=== PATIENT | female | born 1955 | race Caucasian/White ===

== ENCOUNTER → 2018-05-26 08:00 | Outpatient (CLI) | payer OTHER, SELFPAY | PROVIDERS: PCP Family Medicine; Visit Provider Internal Medicine Cardiovascular Disease | DX: I48.1 Persistent atrial fibrillation (principal) | CPT/HCPCS: 93005; 93010 ==

== ENCOUNTER 2019-09-03 09:12 | Outpatient (REF) | payer OTHER, SELFPAY ==
[2019-09-03 13:37] LABS: HCT 40.4 % (36.0-46.0); HGB 13.5 g/dL (12.0-15.5); Mean Corp. HGB Concentration 33.4 g/dL (32.0-36.0); Mean Corpuscular Hemoglobin 31.1 pg (27.0-33.0); Mean Corpuscular Volume 93.1 fL (80-95); Mean Platelet Volume 11.2 fL (8.0-11.0); Platelet Count 182 x1000/uL (130-400); RBC 4.34 m/cumm (4.00-5.20); RBC Distribution Width 12.8 % (11.7-14.6); White Blood Cell Count 5.77 k/cumm (4.4-10.8)
[2019-09-03 13:56] LABS: ALT 34 U/L (14-59); AST 20 U/L (15-37); Albumin 3.5 g/dL (3.4-5.0); Alkaline Phosphatase 74 U/L (46-116); Anion Gap 6.8 mmol/L (3-11); BUN 11 mg/dL (7-18); Bilirubin, Total 0.5 mg/dL (0.2-1.0); CO2 29.2 mmol/L (21.0-32.0); CREATININE 0.88 mg/dL (0.55-1.02); Calcium 8.6 mg/dL (8.5-10.1); Calculated LDL 118 mg/dL; Chloride 106 mmol/L (98-107); Cholesterol 192 mg/dL (<200); Glucose 85 mg/dL (74-106); HDL Cholesterol 50 mg/dL (40-60); Potassium 3.9 mmol/L (3.5-5.1); Sodium 142 mmol/L (136-145); Total Protein 6.5 g/dL (6.4-8.2); Triglyceride 123 mg/dL (<150)
== END 2019-09-03 09:32 ==
LOC: NCHCN 09:12
PROVIDERS: PCP Family Medicine; Visit Provider Family Medicine
DX: Z00.00 Encounter for general adult medical examination without abnormal findings (principal); I10 Essential (primary) hypertension; R00.2 Palpitations; K57.90 Diverticulosis of intestine, part unspecified, without perforation or abscess without bleeding
CPT/HCPCS: 80053; 80061; 85027

== ENCOUNTER 2020-09-27 00:36 | Outpatient (CLI) | payer MEDICARE, OTHER, SELFPAY ==
--- NOTE | 2020-09-27 10:15 | DI.MAMMO_ITS ---
EXAM: MG MAMMO SCREENING CLINICAL HISTORY: SCREENING,Z12.31 TECHNIQUE: Bilateral full field digital CC and MLO mammographic images were obtained with 3D tomosyn thesis and utilizing computer aided detection (CAD). COMPARISON: Available for comparison. FINDINGS: Masses/Architectural Distortion: None seen. Microcalcifications: No suspicious pleomorphic-type are seen. Skin Thickening/Nipple Retraction: None. IMPRESSION: 1. No significant interval change with no specific features of malignancy noted. 2. Unless there is more urgent need, screening mammography is recommended, as per [employer] guidelines. BI-RADS Category 1 - Negative Breast Density - Category C - Heterogeneously dense Breast density category C or D implies that the patient has dense breast tissue. Dense breast tissue is very common and is not abnormal but dense breast tissue can make it harder to find cancer on a ma mmogram. Also, dense breast tissue may increase their breast cancer risk. This information about the result of the mammogram report was provided to the patient to raise their awareness. Use this report when you speak with the patient about their risks for breast cancer, which includes their family hist ory. At that time, you may recommend for more screening tests (Ultrasound or MRI) as they might be us eful based on their risk. A negative radiographic report should not delay biopsy if a dominant or clinically suspicious mass is present. Up to ten percent of cancers are not identified on mammography. A negative report may reinforce clinical impression. Adenosis and dense breasts may obscure an underlying neoplasm. False positive reports average 6 to 10%. Patient will receive a letter notifying them of these results.
== END 2020-09-27 00:56 ==
PROVIDERS: PCP Family Medicine; Visit Provider Family Medicine
DX: Z12.31 Encounter for screening mammogram for malignant neoplasm of breast (principal)
CPT/HCPCS: 77063; 77067

== ENCOUNTER 2020-09-29 17:57 | Outpatient (REF) | payer MEDICARE, OTHER, SELFPAY ==
[2020-10-03 17:21] LABS: COVID-19 RT-PCR Result NEGATIVE (Negative)
== END 2020-09-29 18:17 ==
LOC: NCHCN 17:57
PROVIDERS: PCP Family Medicine; Visit Provider Family Medicine
DX: Z11.59 Encounter for screening for other viral diseases (principal)
CPT/HCPCS: U0003

== ENCOUNTER → 2020-11-04 14:00 | Outpatient (BNVA) | payer MEDICARE, OTHER, SELFPAY | PROVIDERS: PCP Family Medicine; Referring Provider Family Medicine; Visit Provider Physical Therapy Assistant | DX: Z12.11 Encounter for screening for malignant neoplasm of colon (principal) ==

== ENCOUNTER 2020-11-22 02:00 | Outpatient (CLI) | payer MEDICARE, OTHER, SELFPAY ==
[2020-11-23 14:04] LABS: COVID-19 RT-PCR UVMMC Result Negative (Negative)
== END 2020-11-22 02:01 | disposition home or self-care (01) ==
LOC: LBO 02:01
PROVIDERS: Surgery; PCP Family Medicine; Visit Provider Surgery
DX: Z20.822 Contact with and (suspected) exposure to COVID-19 (principal); Z01.818 Encounter for other preprocedural examination
CPT/HCPCS: U0003; U0005

== ENCOUNTER → 2021-02-03 08:54 | Outpatient (BNVA) | payer MEDICARE, OTHER, SELFPAY | PROVIDERS: PCP Family Medicine; Referring Provider Family Medicine; Visit Provider Physical Therapy Assistant ==

== ENCOUNTER 2021-02-03 21:57 | Outpatient (REF) | payer MEDICARE, OTHER, SELFPAY ==
[2021-02-03 20:48] LABS: HCT 38.2 % (36.0-46.0); HGB 12.9 g/dL (11.2-15.7); MCH 31.1 pg (27.0-33.0); MCHC 33.8 % (32.0-36.0); MPV 11.1 fL (8.0-11.0); Platelet Count 175 10^3/uL (130-400); RBC 4.15 10^6/uL (3.93-5.22); RDW 12.5 % (11.7-14.6); RDW-SD 42.5 fL; WBC 6.35 10^3/uL (4.4-10.8)
[2021-02-03 21:00] LABS: Anion Gap 5.4 mmol/L (3-11); BUN 12 mg/dL (7-18); CO2 29.6 mmol/L (21.0-32.0); CREATININE 0.9 mg/dL (0.55-1.02); Chloride 106 mmol/L (98-107); Glucose 82 mg/dL (74-106); Potassium 3.9 mmol/L (3.5-5.1); Sodium 141 mmol/L (136-145)
== END 2021-02-03 21:58 | disposition home or self-care (01) ==
LOC: NCHCN 21:57
PROVIDERS: PCP Family Medicine; Visit Provider Family Medicine
DX: I10 Essential (primary) hypertension (principal)
CPT/HCPCS: 80048; 85027

== ENCOUNTER → 2021-04-07 11:24 | Outpatient (BNVA) | payer MEDICARE, OTHER, SELFPAY | PROVIDERS: PCP Family Medicine; Referring Provider Family Medicine; Visit Provider Physical Therapy Assistant | DX: Z12.11 Encounter for screening for malignant neoplasm of colon (principal); I10 Essential (primary) hypertension ==

== ENCOUNTER 2021-04-19 06:19 | Day surgery (SDC) | payer MEDICARE, OTHER, SELFPAY ==
--- NOTE | 2021-04-19 06:27 | W.COLOREPORT ---
Date of service: 04/19/21 Time of Service: 07:58 Colonoscopy Report Date of procedure: 04/19/21 Pre-op diagnosis general: Colon Cancer Screening Post-op diagnosis procedure note: same (diverticulosis) Procedure: Colonoscopy Surgeon: Lucía Olivas Anesthesia Type: General:No Airway (ASA 2/ Salvador Blood, SHIRLEY) Estimated blood loss (mL): 0 Pathology: none sent Complications: None Disposition: same day Indications: The patient is here for Colonoscopy pre-op. Her last screening was 13+ years ago, which she reports was unremarkable. She has no family history of colon cancer. She has not had any bowel habit changes. -Discussed colonoscopy bowel prep as well as the procedure. Discussed possible complications of the procedure to include bleeding, pain, perforation, missed small lesion/polyp, sore throat, aspiration and adverse reaction to the medications. Questions were answered to patient?s satisfaction. No guarantees were implied or given. Prep: Miralax/Dulcolax Procedure Start Time: 07:36 Procedure End Time: 07:51 Retraction Time: 10 minutes Findings: Left sided diverticulosis Procedure Description: After informed consent was obtained the patient was taken to the procedure room and placed in a left decubitous position. Monitors were applied and a time out was done. The patients name, date of , procedure, allergies to medications and metal in their body was reviewed. The patient was then sedated. Once sedated and comfortable a rectal exam was done. External exam was normal. Internal exam revealed a normal sphincter tone and no palpable masses. The scope was then introduced and retro-flexed. No internal hemorrhoids, polyps or masses were identified on retro-flexion. The scope was then advanced to the cecum without difficulty. The ileocecal vlave and appendiceal orifice were identified. The prep was adequate. The scope was then slowly retracted over 10 minutes back into the rectum. There were no polyps. There was descending and sigmoid diverticulosis noted. The scope was removed and the patient was woken up and taken back to Same day surgery in stable condition. The patient tolerated the procedure well and there were no immediate complications. Follow up: The patient should follow up in 10 years unless they develop changes in bowel habits or other new gastrointestinal complaints.
--- NOTE | 2021-04-19 06:28 | PDOC.DSDIS_ITS ---
Discharge Plan Disposition Patient Disposition: HOME Condition: Good Discharge Details Reason For Visit: Colonoscopy Attending Provider: Lucía Olivas Primary Care Provider: Katherine Avendano Home Meds and New Rx's Prescriptions: Continued lisinopril-hydrochlorothiazide 20-12.5 mg tablet 1 tab PO DAILY RF: 0 magnesium gluconate 27 mg magnesium (500 mg) tablet 27 mg PO DAILY RF: 0 Xarelto 20 mg tablet 20 mg PO DAILY RF: 0 calcium polycarbophil [Fiber (calcium polycarbophil)] 625 mg tablet 2,500 mg PO BID PRNRF: 0 metoprolol tartrate 25 mg tablet 37.5 mg PO BID RF: 0 Discontinued bisacodyl [Dulcolax (bisacodyl)] 5 mg tablet,delayed release (DR/EC) 5 mg PO ONCE Qty: 4 RF: 0 polyethylene glycol 3350 17 gram/dose powder 238 g PO ONCE Qty: 238 RF: 0 Discharge Instructions Instructions: Diverticulosis (DC) Additional Instructions: Findings: Diverticulosis Follow up: 10 years Please call if you develop: fevers >101.5 Nausea or Vomiting Abdominal pain that is not transient Rectal bleeding that is more then a tbsp A hard abdomen and inability to pass gas DAY SURGERY UNIT POST ENDOSCOPY INSTRUCTIONS Instructions for everyone who is given Anesthesia: For your safety, please do the following for the next 24 Hours: a. Do not drive or operate dangerous equipment b. Do not drink alcohol beverages or use any recreational drugs for the first 24 hours or while taking pain medications. The medications in your body may have a reaction that can be dangerous. c. Do not make any important decisions or sign any important papers 1. Generally there are no restrictions on your activity after a day or so has g one by, but you may feel a bit fatigued for a few days. 2. After you arrive home you may have a light meal and return to a normal diet as you can tolerate it without feeling sick to your stomach. 3. After surgery, you may feel pain or discomfort. This should be only transient, but if it persists please contact your doctor. 4. If there are any questions regarding the findings of your procedure, please feel free to contact your doctor. 6. If you are unable to contact your doctor with a problem, contact the hospital at [phone]. 7. Continue all your regular medications unless directed otherwise. I understand the above instructions and have no questions. Signature of Patient or Responsible Adult Escort Date/Time Name of Responsible Adult Escort Signature of Nurse Date/Time Activity:: Activity as Tolerated Diet:: High Fiber Diet Discharge Orders Discharge Orders: Discharge Order (Routine); Ordered 04/19/21 Ordered By: Lucía Olivas
[2021-04-19 06:40] VITALS: BP 112/70; PULSE 77; RESP 20; TEMP 36.2; O2SAT 100
--- NOTE | 2021-04-19 06:58 | W.ANESPRE ---
General Info Date of Service Date Performed: 04/19/21 Height: 5 ft 6.93 in Weight: 68.4 kg Body Mass Index (BMI): 23.6 Surgical Procedure: Operation Date: 04/19/21 07:35 Proposed Procedures Side Surgeon p Colonoscopy Lucía Olivas MD Actual Procedures Side Surgeon p Colonoscopy Not Applicable Lucía Olivas MD Pre-Op Diagnosis Post-Op Diagnosis Screening Colonoscopy Meds Allergies and Home Medications Allergies Allergy/AdvReac Type Severity Reaction Status Date / Time No Known Allergies Allergy Verified 04/19/21 06:26 Home Medication Medication Instructions Recorded calcium polycarbophil 625 mg tablet 2,500 mg PO BID PRN tab 09/22/19 magnesium gluconate 27 mg 27 mg PO DAILY tab 09/22/19 magnesium (500 mg) tablet rivaroxaban 20 mg tablet 20 mg PO DAILY 09/22/19 metoprolol tartrate 25 mg tablet 37.5 mg PO BID tab 11/04/20 bisacodyl 5 mg tablet,delayed 5 mg PO ONCE #4 tab 11/07/20 release polyethylene glycol 3350 17 238 g PO ONCE #238 g 11/07/20 gram/dose oral powder lisinopril 20 1 tab PO DAILY 04/07/21 mg-hydrochlorothiazide 12.5 mg tablet Current Visit Medications: Current Medications Generic Name Dose Route Start Last Admin Trade Name Freq PRN Reason Stop Dose Admin Hyoscyamine Sulfate 0.125 mg 04/19/21 06:29 Hyoscyamine 0.125 Mg Sl/Oral/Chew SL DIRECTED PRN Ringer's Solution 1,000 mls @ 80 mls/hr 04/19/21 06:00 IV 05/18/21 23:59 [facility]ION [facility] IV Miscellaneous Supplies 1 each 04/19/21 06:00 Iv Access IV 05/18/21 23:59 DIRECTED SUSAN Ondansetron HCl 4 mg 04/19/21 06:29 Ondansetron 4 Mg/2 Ml Vial IVP Q4H PRN PRN Nausea / Vomiting Sodium Chloride 0 ml 04/19/21 06:00 Normal Saline Flush 10 Ml Syr IV 05/18/21 23:59 PRN PRN Sodium Chloride 0 ml 04/19/21 06:00 Normal Saline 10 Ml Vial IJ 05/18/21 23:59 DIRECTED PRN Sterile Water 0 ml 04/19/21 06:00 Water,Injection,Sterile 10 Ml Vial IJ 05/18/21 23:59 DIRECTED PRN [facility] Active Problems Active Problems: Problem Status Onset Code Moderate tricuspid regurgitation I07.1 DAMION (obstructive sleep apnea) G47.33 Neurodermatitis L28.0 Diverticulosis K57.90 Hypertension I10 A-fib I48.91 Medical History Medical History A-fib Abdominal tightness tightness on left side of abd, Diverticulosis Diverticulosis History of cardioversion x3 Hypertension Moderate tricuspid regurgitation Neurodermatitis DAMION (obstructive sleep apnea) Surgical History Surgical History History of colonoscopy (~05/19/08) History of thyroidectomy per pt just half her thyroid. Tobacco Smoking/Tobacco Use Status: Never Alcohol Alcohol Intake: current Alcohol intake frequency: a few times a month Alcohol type: wine Substance Use Substance use: Never Substance use type: does not use Vital Signs and Lab Results Vital Signs Most Recent Vital Signs in EMR: Most Recent Vital Signs Temp Pulse Resp BP Pulse Ox 36.2 C L 77 20 112/70 100 04/19/21 06:40 04/19/21 06:40 04/19/21 06:40 04/19/21 06:40 04/19/21 06:40 Lab Results Blood Type / Crossmatch: No Data to Display Complete Blood Count: No Data to Display Complete Metabolic Panel: No Data to Display Liver Function Panel: No Data to Display Coagulation Panel: No Data to Display Cardiac Panel: No Data to Display Arterial Blood Gas: No Data to Display Venous Blood Gas: No Data to Display Pancreas Panel: No Data to Display Thyroid Panel: No Data to Display Infectious Disease: No Data to Display Blood Cultures: No Data to Display Toxicology Panel: No Data to Display Anesthesia Assessment and Plan Anesthesia History Personal History: No History of Anesthesia Complications Family History: No Family History of Anesthesia Complications Exercise Tolerance Exercise Tolerance: Metabolic Equivalents>4 Pertinent Negatives Pertinent Negatives: No Symptoms of GERD, No Major Cardiovascular Symptoms or Complaints and No History of CVA/TIA Cardiac & Pulmonary Exam Cardiac Exam: Normal S1/S2 Heart Sounds Pulmonary Exam: Clear Bilateral Breath Sounds Airway Exam Known Difficult Airway: No Mallampati Class: 2 Mouth Opening: Normal (> 3cm) Thyromental Distance: Greater than 3 cm Neck Range of Motion: Full ROM Neck Circumference: Normal Teeth Condition: Normal Dentition Airway Comments: 4 crowns, 1 each top and bottom right and left back ASA Classification ASA Score: ASA 2 Emergency Case?: No NPO Status NPO Status: NPO Clears >2 hours, Solids >8 hours Anesthesia Plan Resuscitation Status: Full Code Anesthesia Technique: General Anesthesia Airway Planned: Natural Airway Monitors Used: Standard Monitors
[2021-04-19] MEDS: Lactated Ringers 1,000 ML 80 ML IV (07:03)
[2021-04-19 07:14] VITALS: BMI 23.6
[2021-04-19 08:07] VITALS: BP 103/64; PULSE 74; RESP 18; TEMP 36.1; O2SAT 97
--- NOTE | 2021-04-19 08:09 | W.ANESPOSTOP ---
Postoperative Evaluation Date, Time and Location Date Performed: 04/19/21 Time Performed: 08:10 Patient Location: Day Surgery Unit Vital Signs Most Recent Imported Vital Signs: Most Recent Vital Signs Temp Pulse Resp BP Pulse Ox 36.2 C L 77 20 112/70 100 04/19/21 06:40 04/19/21 06:40 04/19/21 06:40 04/19/21 06:40 04/19/21 06:40 Most Recent Manually Entered Vital Signs: Adult Blood Pressure: 103/64 Heart Rate: 63 Respirations: 10 Oxygen Saturation (%): 96 Temperature (C): 36.4 C Pain Score (0-10 Scale): 0 Pain Score Most Recent Pain Score: Most Recent Pain Score Pain Level 0 04/19/21 06:40 Assessment Mental Status: Awake (Alert & Oriented to Patient Baseline) Airway and Respiratory Function: Patent airway with normal (patient baseline) respiratory exam Cardiovascular Function: Hemodynamically Stable Hydration Status: Adequately Hydrated Nausea & Vomiting: No Nausea or Vomiting Pain: Pt. Denies Any Pain Peripheral Nerve Block: Patient did not receive a nerve block
[2021-04-19 08:11] VITALS: BP 103/64; PULSE 63; RESP 10; TEMPC 36.4; O2SAT 96
[2021-04-19 08:37] VITALS: BP 104/70; PULSE 64; RESP 18; TEMP 36.2; O2SAT 100
== END 2021-04-19 08:56 | disposition home or self-care (01) ==
PROVIDERS: PCP Family Medicine; Visit Provider Surgery
PROC: 0DJD8ZZ Inspection of Lower Intestinal Tract, Via Natural or Artificial Opening Endoscopic (ICD-10-PCS; CPT 45378; principal; 2021-04-19 07:30)
DX: Z12.11 Encounter for screening for malignant neoplasm of colon (principal); K57.30 Diverticulosis of large intestine without perforation or abscess without bleeding; G47.33 Obstructive sleep apnea (adult) (pediatric); I10 Essential (primary) hypertension; I48.91 Unspecified atrial fibrillation
CPT/HCPCS: G0121; J2001

== ENCOUNTER 2021-11-17 00:42 | Outpatient (CLI) | payer MEDICARE, SELFPAY ==
--- NOTE | 2021-11-17 | DI.MAMMO_ITS ---
Exam(s) MAMMO SCREENING EXAM: MAMMO SCREENING CLINICAL HISTORY: SCREENING,Z12.31 TECHNIQUE: Bilateral full field digital CC and MLO mammographic images were obtained with 3D tomosyn thesis and utilizing computer aided detection (CAD). COMPARISON: Available for comparison. FINDINGS: Masses/Architectural Distortion: None seen. Microcalcifications: No suspicious pleomorphic-type are seen. Skin Thickening/Nipple Retraction: None. IMPRESSION: 1. No significant interval change with no specific features of malignancy noted. 2. Unless there is more urgent need, screening mammography is recommended, as per [employer] guidelines. BI-RADS Category 1 - Negative Breast Density - Category C - Heterogeneously dense Breast density category C or D implies that the patient has dense breast tissue. Dense breast tissue is very common and is not abnormal but dense breast tissue can make it harder to find cancer on a ma mmogram. Also, dense breast tissue may increase their breast cancer risk. This information about the result of the mammogram report was provided to the patient to raise their awareness. Use this report when you speak with the patient about their risks for breast cancer, which includes their family hist ory. At that time, you may recommend for more screening tests (Ultrasound or MRI) as they might be us eful based on their risk. A negative radiographic report should not delay biopsy if a dominant or clinically suspicious mass is present. Up to ten percent of cancers are not identified on mammography. A negative report may reinforce clinical impression. Adenosis and dense breasts may obscure an underlying neoplasm. False positive reports average 6 to 10%. Patient will receive a letter notifying them of these results.
--- NOTE | 2021-11-17 09:00 | DI.DEXA_ITS ---
Exam(s) XR DEXA BONE DENSITY W/WO ANNETTE EXAM: XR DEXA BONE DENSITY W/WO ANNETTE CLINICAL HISTORY: MENOPAUSAL, Z78.0 TECHNIQUE: COMPARISON: No exams were available for comparison FINDINGS: Lateral Spine Image: Unremarkable. No compression deformities identified. Left hip: Total T-Score: -0.4 Total Z-Score: 0.9 T- and Z-scores: Within normal limits. Lumbar Spine: Total T-Score: -0.6 Total Z-Score: 1.3 T- and Z-scores: Within normal limits. IMPRESSION: No evidence of osteoporosis.
== END 2021-11-17 01:02 ==
PROVIDERS: PCP Family Medicine; Visit Provider Family Medicine
DX: Z12.31 Encounter for screening mammogram for malignant neoplasm of breast (principal); Z13.820 Encounter for screening for osteoporosis; Z78.0 Asymptomatic menopausal state
CPT/HCPCS: 77063; 77067; 77080

== ENCOUNTER 2022-06-22 16:53 | Outpatient (REF) | payer MEDICARE, SELFPAY ==
[2022-06-22 15:11] LABS: Anion Gap 8.6 mmol/L (3-11); BUN 14 mg/dL (7-18); CO2 26.4 mmol/L (21.0-32.0); Calcium 8.5 mg/dL (8.5-10.1); Chloride 101 mmol/L (98-107); Estimated GFR 61.75 (mL/min/1.73m2); Glucose 127 mg/dL (74-106); Potassium 3.5 mmol/L (3.5-5.1); Sodium 136 mmol/L (136-145)
== END 2022-06-22 16:54 | disposition home or self-care (01) ==
LOC: NCHCN 16:53
PROVIDERS: PCP Family Medicine; Visit Provider Family Medicine
DX: I10 Essential (primary) hypertension (principal)
CPT/HCPCS: 80048

== ENCOUNTER 2022-10-12 17:38 | Outpatient (REF) | payer MEDICARE, SELFPAY ==
[2022-10-12 21:08] LABS: ALT 36 U/L (14-59); AST 33 U/L (15-37); Albumin 3.5 g/dL (3.4-5.0); Alkaline Phosphatase 62 U/L (46-116); Anion Gap 4.5 mmol/L (3-11); BUN 17 mg/dL (7-18); Bilirubin, Total 0.4 mg/dL (0.2-1.0); CO2 31.5 mmol/L (21.0-32.0); CREATININE 0.9 mg/dL (0.55-1.02); Calcium 8.8 mg/dL (8.5-10.1); Calculated LDL 131 mg/dL (<100); Chloride 104 mmol/L (98-107); Cholesterol 221 mg/dL (<200); Estimated GFR 70.07 (mL/min/1.73m2); Glucose 120 mg/dL (74-106); HDL Cholesterol 64 mg/dL (40-60); Potassium 3.5 mmol/L (3.5-5.1); Sodium 140 mmol/L (136-145); Total Protein 6.7 g/dL (6.4-8.2); Triglyceride 130 mg/dL (<150)
== END 2022-10-12 17:39 | disposition home or self-care (01) ==
LOC: NCHCN 17:38
PROVIDERS: PCP Family Medicine; Visit Provider Family Medicine
DX: I10 Essential (primary) hypertension (principal); Z13.220 Encounter for screening for lipoid disorders
CPT/HCPCS: 80053; 80061

== ENCOUNTER 2022-10-19 15:20 | Outpatient (REF) | payer MEDICARE, SELFPAY ==
[2022-10-19 16:16] LABS: Bilirubin Negative (Negative); Blood Trace-intact (Negative); Clarity Clear (Clear); Glucose Negative (Negative); Ketones Negative (Negative); Leukocyte Esterase Small (Negative); Nitrite Negative (Negative); Urobilinogen 0.2 EU/dL (Up TO 0.2); pH 7.5 (5-8)
[2022-10-19 16:23] LABS: Bacteria Rare HPF (Negative); C & S Indicated? No/Sq. Contamination; Crystals Negative HPF (Negative); Epithelial Cells Moderate HPF (Negative); Mucus Negative (Negative); Other Cells Few Renal (Negative); RBC 0-2 HPF (0-2)
== END 2022-10-19 15:21 | disposition home or self-care (01) ==
LOC: NCHCN 15:20
PROVIDERS: PCP Family Medicine; Visit Provider Family Medicine
DX: R30.0 Dysuria (principal)
CPT/HCPCS: 81003; 81015

== ENCOUNTER 2023-01-22 08:20 | Emergency (ER) | payer MEDICARE, SELFPAY ==
--- NOTE | 2023-01-22 08:15 | RT.EKG_ITS ---
APPROVED REPORT Exam: Resting ECG Reason for Exam: Chest Pain Patient Location: E HR:80 bpm ECG Measurements Heart Rate [address] [id number] P [id number] QRSd 85 QRS 44 QT 373 T -31 QTc 431 Conclusion Atrial fibrillation...V-rate 70-136, irreg A-activity Low voltage, precordial leads...precordial leads <1.0mV Borderline T abnormalities, diffuse leads...T flat/neg Physician: no stemi, inverted t wave lead III, unchanged from prior ekg for the inversions
[2023-01-22 08:24] VITALS: BP 145/87; PULSE 76; RESP 18; TEMP 36.4; O2SAT 99
--- NOTE | 2023-01-22 08:30 | DI.RAD_ITS ---
Exam(s) XR PORTABLE CHEST AP EXAM: XR PORTABLE CHEST AP CLINICAL HISTORY: central chest pain. TECHNIQUE: 2D digital imaging was performed. COMPARISON: CR RIGHT RIBS TO INCLUDE CXR from 01/15/2012 FINDINGS: Single AP portable view. Heart size is upper normal. The mediastinum is not widened. Lungs are clear. No infiltrates nor obvious pleural effusions. IMPRESSION: No acute pulmonary findings on this single AP portable view of the chest. DATA REPOSITORY: RADIATION DOSE DELIVERED:
[2023-01-22 08:36] VITALS: RESP 18
[2023-01-22 08:55] LABS: Abs Immature Grans 0.01 10^3/uL (0.0-0.06); Absolute Basophil Count 0.08 10^3/uL (0.0-0.2); Absolute Eosinophil Count 0.25 10^3/uL (0.0-0.7); Absolute Lymphocyte Count 2.06 10^3/uL (1.2-3.4); Absolute Monocyte Count 0.74 10^3/uL (0.1-0.8); Absolute Neutrophil Count 4.09 10^3/uL (1.2-6.7); Basophils % 1.1; Eosinophils % 3.5; HCT 40.3 % (36.0-46.0); HGB 13.8 g/dL (11.2-15.7); Immature Grans % 0.1; Lymphocytes % 28.5; MCH 31.5 pg (27.0-33.0); MCHC 34.2 % (32.0-36.0); MCV 92 fL (80-95); MPV 10.4 fL (8.0-11.0); Monocytes % 10.2; Neutrophils % 56.6; Platelet Count 204 10^3/uL (130-400); RBC 4.38 10^6/uL (3.93-5.22); RDW 12.3 % (11.7-14.6); RDW-SD 41.8 fL; WBC 7.23 10^3/uL (4.4-10.8)
[2023-01-22 09:09] LABS: INR 1.2 (0.9-1.1); PTT Activated 28.6 sec (21.5-31.9); Prothrombin Time 12.1 sec (9.3-11.0)
[2023-01-22 09:18] LABS: ALT 36 U/L (14-59); AST 28 U/L (15-37); Albumin 3.8 g/dL (3.4-5.0); Alkaline Phosphatase 73 U/L (46-116); Anion Gap -1.9 mmol/L (3-11); BUN 19 mg/dL (7-18); Bilirubin, Total 0.6 mg/dL (0.2-1.0); CO2 28.9 mmol/L (21.0-32.0); CREATININE 0.9 mg/dL (0.55-1.02); Calcium 9.2 mg/dL (8.5-10.1); Chloride 103 mmol/L (98-107); Estimated GFR 70.07 (mL/min/1.73m2); Glucose 86 mg/dL (74-106); Magnesium 1.5 mg/dL (1.8-2.4); NT-proBNP 898 pg/mL (<300); Potassium 3.4 mmol/L (3.5-5.1); Sodium 130 mmol/L (136-145); Total Protein 7.8 g/dL (6.4-8.2); Troponin I < 50 ng/L (<or=60)
--- NOTE | 2023-01-22 09:36 | ED.GENADUL_ITS ---
Discharge Plan Disposition Patient Disposition: Home Condition: Good Discharge Details Clinical Impression: Chest pain Primary Care Provider: Katherine Avendano ED Provider: Arnulfo Lazcano Home Meds and New Rx's Prescriptions: Continued lisinopril-hydrochlorothiazide 20-12.5 mg tablet 1 tab PO DAILY magnesium gluconate 27 mg magnesium (500 mg) tablet 27 mg PO DAILY Xarelto 20 mg tablet 20 mg PO DAILY calcium polycarbophil [Fiber (calcium polycarbophil)] 625 mg tablet 2,500 mg PO BID PRN metoprolol tartrate 25 mg tablet 37.5 mg PO BID Discharge Instructions Instructions: Chest Pain (ED) Additional Instructions: At this time your cardiac work-up has returned and is very reassuring. Your symptoms clinically seem unlikely to be cardiac in nature, however with your age and risk factors we do worry about potential cardiac causes. Your electrolytes demonstrated minimal abnormalities but were otherwise all very reasonable and normal. Your renal function was very good. Your magnesium was slightly low and this has been corrected. Sometimes this can cause atypical symptoms like this. We have placed an order for an outpatient stress test and you will be contacted for the appointment times. Please follow-up closely with your primary care provider to discuss this further. If you notice any worsening of your symptoms, or any new symptoms such as vomiting, diarrhea, fever, chills, shortness of breath, chest pain, numbness, weakness, or fainting , please return immediately to the emergency department for reevaluation. Please follow up with your primary care provider as soon as possible for reassessment and reevaluation. As always, it was a pleasure participating in your medical care today. Referrals: Katherine Avendano [Primary Care Provider] - Medical Decision Making 67-year-old female with a past medical history of moderate tricuspid regurgitation, obstructive sleep apnea, diverticulosis, hypertension, atrial fibrillation on Xarelto, presents today for evaluation of chest pain. The patient states that over the past few days she has had intermittent episodes of what she describes as an brief chest sensation which is minimally painful. It is in the center of her chest. It usually last for 2 to 3 seconds, and happens about 2-3 times per day. It is unrelated to breathing, unrelated to activity, and goes away on its own. There is no radiation to the arms neck or shoulder. Today she had another episode while she was standing at a desk and it lasted a little bit longer than normal about 5 to 10 seconds. She did feel slightly lightheaded with this. It resolved on its own. She came in for further assessment. She denies any history of heart attack. She has never had a stroke before. She has not had a stress test before. She has not smoked. She denies any vomiting or diarrhea. She denies any family history of sudden cardiac . She denies any significant changes in medication. She did walk to work today and that was over a mile of walking, she had no difficulty, shortness of breath or chest pain associated with this. No recent long trips surgeries or procedures. No other complaints at this time. No other modifying factors. She does note that she has been recently changing her exercise regiment and has been using a lot more weights and movements with her upper chest, but she has had no pain while doing this. Physical exam demonstrates well-appearing female, no significant abnormalities. Vital signs notably stable. No reproducible chest pain. Bedside echo demonstr ates very reasonable/normal ejection fraction around 45 to 55%. Mild valvular regurg is noted. Symptoms appear unlikely to be ACS given the history, PE seems clinically unlikely as well. Potentially mild pericarditis, musculoskeletal component, or pleurisy. Will evaluate for concerning etiologies, monitor closely and reassess. Patient is pain-free at this time. 1:18 PM Patient's laboratory work-up has returned, no white count bandemia or left shift. Sodium minimally low at 130, potassium minimally low at 3.4, renal function normal. Magnesium 1.5. This has been replaced. proBNP mildly elevated at 898, however the patient does not demonstrate evidence of heart failure clinically. Troponin normal. Repeat troponin was performed and is also normal. EKGs remain notably stable. Initial EKG and repeat EKG both demonstrate a few T wave inversions, however in comparison to prior EKGs this is actually improved as there were many more inverted T waves in the past. There is no associated depression or elevation. No evidence of STEMI. Patient continues to feel notably clinically well. No chest pain whatsoever. Symptoms appear notably unlikely to be cardiac in origin however secondary to her age and risk factors I do feel that further evaluation is warranted with stress testing. We discussed risk and benefits of inpatient admission observation and stress testing versus outpatient urgent stress testing, and through shared decision- making process we will move forward with urgent outpatient stress testing. Patient agrees with plan. Otherwise patient feels well at this time. Symptoms inconsistent with dissection, PE or STEMI. Discussed red flags which to return. I have extensively reviewed the treatment plan and discharge instructions with the patient and their family. I have addressed all patient concerns at this time. The patient and family was made aware of what symptoms to monitor for that would warrant a return to the emergency department. Discussed the plan with the patient and family, they demonstrate verbal understanding and agreement with our assessment and plan at this time. The documentation in this chart was dictated using [employer] dictation software. Please excuse any dictation errors. FINDINGS: Single AP portable view. Heart size is upper normal. The mediastinum is not widened. Lungs are clear. No infiltrates nor obvious pleural effusions. IMPRESSION: No acute pulmonary findings on this single AP portable view of the chest. HPI General Date/Time Provider Initiated Documentation: 01/22/23 08:21 . HPI Narrative: 67-year-old female with a past medical history of moderate tricuspid regurgitation, obstructive sleep apnea, diverticulosis, hypertension, atrial fibrillation on Xarelto, presents today for evaluation of chest pain. The patient states that over the past few days she has had intermittent episodes of what she describes as an brief chest sensation which is minimally painful. It is in the center of her chest. It usually last for 2 to 3 seconds, and happens about 2-3 times per day. It is unrelated to breathing, unrelated to activity, and goes away on its own. There is no radiation to the arms neck or shoulder. Today she had another episode while she was standing at a desk and it lasted a little bit longer than normal about 5 to 10 seconds. She did feel slightly lightheaded with this. It resolved on its own. She came in for further assessment. She denies any history of heart attack. She has never had a stroke before. She has not had a stress test before. She has not smoked. She denies any vomiting or diarrhea. She denies any family history of sudden cardiac d eath. She denies any significant changes in medication. She did walk to work today and that was over a mile of walking, she had no difficulty, shortness of breath or chest pain associated with this. No recent long trips surgeries or procedures. No other complaints at this time. No other modifying factors. She does note that she has been recently changing her exercise regiment and has been using a lot more weights and movements with her upper chest, but she has had no pain while doing this. Related Data Home Medications Medication Instructions Recorded Confirmed calcium polycarbophil 625 mg 2,500 mg PO BID PRN 09/22/19 04/19/21 tablet (Fiber (calcium polycarbophil)) magnesium gluconate 27 mg 27 mg PO DAILY 09/22/19 04/19/21 magnesium (500 mg) tablet rivaroxaban 20 mg tablet (Xarelto) 20 mg PO DAILY 09/22/19 01/22/23 metoprolol tartrate 25 mg tablet 37.5 mg PO BID 11/04/20 01/22/23 lisinopril 20 1 tab PO DAILY 04/07/21 01/22/23 mg-hydrochlorothiazide 12.5 mg tablet Allergies Allergy/AdvReac Type Severity Reaction Status Date / Time No Known Allergies Allergy Verified 04/19/21 06:26 General Stated Complaint: Chest Pain NELLY: 3 Review of Systems All systems reviewed & are unremarkable except as noted in HPI and below PFSH All Active Problems (Updated 01/22/23 @ 12:47 by Arnulfo Lazcano DO) Chest pain (Acute) Moderate tricuspid regurgitation (Acute) DAMION (obstructive sleep apnea) (Chronic) Neurodermatitis (Acute) Diverticulosis (Acute) Hypertension (Chronic) A-fib (Chronic) Medical History Abdominal tightness tightness on left side of abd, Diverticulosis History of cardioversion x3 Surgical History History of colonoscopy (~05/19/08) History of colonoscopy (~04/2021) History of thyroidectomy per pt just half her thyroid. Social History Smoking/Tobacco Use Status: Never Smoking risk assessment performed?: Yes Alcohol Intake: current Alcohol Intake frequency: a few times a month Alcohol type: wine Drug use: Never Substance use type: does not use Do you feel safe at home: Yes Do you feel safe in your relationship?: Yes Exam Narrative Exam Narrative: 1.Const: Well-nourished, Well-developed, appearing stated age 2.Eyes: PERRL, no conjunctival injection, and symmetrical lids. 3.ENT: Atraumatic external nose and ears. Moist MM. Neck: Symmetric, trachea midline, No thyromegaly. 4.CVS: +S1/S2, No murmurs or gallops. Peripheral pulses 2+ and equal in all extremities. Brisk capillary refill in all extremities. 5.RESP: Unlabored respiratory effort. Clear to auscultation bilaterally. No wheezes rales or rhonchi 6.GI: Soft, Nontender/Nondistended, No hepatosplenomegaly. No guarding or rebound. 7.MSK: Normocephalic/Atraumatic, Extremities w/o deformity or ttp No cyanosis or clubbing, Normal movement of all extremities 8.Skin: Warm, Dry. No rashes or lesions. 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 Sensation grossly intact, no focal neurologic deficits. 10.Psych: (AAO) x3. Appropriate mood and affect Course Vital Signs Vital signs: Vital Signs Temperature 36.4 C 01/22/23 08:24 Pulse 76 01/22/23 08:24 Respiratory Rate 18 01/22/23 08:24 Blood Pressure 145/87 H 01/22/23 08:24 Pulse Oximetry 99 01/22/23 08:24 Temperature 36.4 C 01/22/23 08:24 Temperature Source Temporal Artery Scan 01/22/23 08:24 Pulse 76 01/22/23 08:24 Respiratory Rate 18 01/22/23 08:36 Respiratory Effort Normal, Non-Labored 01/22/23 08:36 Respiratory Depth Normal 01/22/23 08:36 Respiratory Pattern Normal 01/22/23 08:36 Blood Pressure 145/87 H 01/22/23 08:24 Blood Pressure Position Supine 01/22/23 08:24 Pulse Oximetry 99 01/22/23 08:24 Oxygen Delivery Method Room Air 01/22/23 08:24 Oxygen Flow Rate 0 01/22/23 08:24 Pain Level 0 01/22/23 08:24 Lab/Test Results Lab/Test Results: Laboratory Tests Range/Units 01/22/23 01/22/23 01/22/23 08:33 08:33 08:33 WBC (4.4-10.8) 10^3/uL 7.23 RBC (3.93-5.22) 10^6/uL 4.38 Hgb (11.2-15.7) g/dL 13.8 Hct (36.0-46.0) % 40.3 MCV (80-95) fL 92 MCH (27.0-33.0) pg 31.5 MCHC (32.0-36.0) % 34.2 RDW (11.7-14.6) % 12.3 Plt Count (130-400) 10^3/uL 204 MPV (8.0-11.0) fL 10.4 Immature Gran % 0.1 Neutrophils % 56.6 Lymphocytes % 28.5 Monocytes % 10.2 Eosinophils % 3.5 Basophils % 1.1 Nucleated RBC % (0.0-0.3) % 0.0 Absolute Neutrophils (1.2-6.7) 10^3/uL 4.09 Absolute Lymphocytes (1.2-3.4) 10^3/uL 2.06 Absolute Monocytes (0.1-0.8) 10^3/uL 0.74 Absolute Eosinophils (0.0-0.7) 10^3/uL 0.25 Absolute Basophils (0.0-0.2) 10^3/uL 0.08 PT (9.3-11.0) sec 12.1 H INR (0.9-1.1) 1.2 H APTT (21.5-31.9) sec 28.6 Sodium (136-145) mmol/L 130 L Potassium (3.5-5.1) mmol/L 3.4 L Chloride (98-107) mmol/L 103 Carbon Dioxide (21.0-32.0) mmol/L 28.9 Anion Gap (3-11) mmol/L -1.9 L BUN (7-18) mg/dL 19 H Creatinine (0.55-1.02) mg/dL 0.9 Est GFR (CKD-EPI 2020) (mL/min/1.73m2) 70.07 Glucose (74-106) mg/dL 86 Calcium (8.5-10.1) mg/dL 9.2 Magnesium (1.8-2.4) mg/dL 1.5 L Total Bilirubin (0.2-1.0) mg/dL 0.6 AST (15-37) U/L 28 ALT (14-59) U/L 36 Alkaline Phosphatase (46-116) U/L 73 Troponin I (<or=60) ng/L < 50 NT-Pro-B Natriuret Pep (<300) pg/mL 898 H Total Protein (6.4-8.2) g/dL 7.8 Albumin (3.4-5.0) g/dL 3.8 POCUS Exam (ED) Limited Cardiac Exam DATE OF EXAM: 01/22/23 TIME OF EXAM: 09:47 PROVIDER THAT PERFORMED THE STUDY: Arnulfo Lazcano IS THIS A REPEAT EXAM DURING THIS ENCOUNTER: no REASON FOR EXAM: Chest pain VISUALIZED STRUCTURES: Left atrium, Left ventricle and Right ventricle VIEW OBTAINED: Parasternal long-axis and Parasternal short-axis PERTINENT FINDINGS/IMPRESSION: No apparent abnormalities Exam complete
[2023-01-22] MEDS: MAGNESIUM SULFATE 2 GM/50 ML BAG IVPB (09:47)
[2023-01-22 12:11] LABS: Troponin I < 50 ng/L (<or=60)
--- NOTE | 2023-01-22 12:15 | RT.EKG_ITS ---
APPROVED REPORT Exam: Resting ECG Reason for Exam: chest pain Patient Location: E HR:65 bpm ECG Measurements Heart Rate 65 AXIS DE [id number] P [id number] QRSd 85 QRS 33 QT 432 T -23 QTc 448 Conclusion Atrial fibrillation...V-rate 49- 80, irreg A-activity Borderline T abnormalities, diffuse leads...T flat/neg Physician: no stemi, stable, unchanged from prior
== END 2023-01-22 16:28 | disposition home or self-care (01) ==
PROVIDERS: Emergency Provider Student in an Organized Health Care Education/Training Program; PCP Family Medicine
DX: R07.9 Chest pain, unspecified (principal); I10 Essential (primary) hypertension; I48.91 Unspecified atrial fibrillation; E87.1 Hypo-osmolality and hyponatremia; R42 Dizziness and giddiness; E83.42 Hypomagnesemia; I31.9 Disease of pericardium, unspecified; R79.89 Other specified abnormal findings of blood chemistry; Z79.01 Long term (current) use of anticoagulants
CPT/HCPCS: 36415; 80053; 93005; 93308; 96365; 96366; 99284; 71045; 83735; 83880; 84484; 85025; 85610; 85730; 93010

== ENCOUNTER 2023-02-07 00:51 | Outpatient (CLI) | payer MEDICARE, SELFPAY ==
--- NOTE | 2023-02-07 | ETT_ITS ---
APPROVED REPORT Exam: Exercise Treadmill Patient Location: Out-Patient Room/Bed: Stress Nurse: Hien Atkins RN Ordering Provider:GI MARQUIS, Contact Number: [phone] BMI: 24.90 Baseline Rhythm: Atrial Fibrillation Comment: Resting T wave abnormalities Indications: Chest pain Medical History Medical History: Chest pain, Afib, hypertension, hyperlipidemia, moderate tricuspid regurgitation, OS A, diverticulosis Cardiac Medications: Metoprolol tartrate, magnesium gluconate, xarelto, lisinopril, hydrochlorothiazi de Allergies: NKA Cardiac Risk Factors: Hypertension, hyperlipidemai Previous Cardiac Procedures: Cardioversion x3 Pretest Chest Pain Characteristics: None Exercise History: Physically active Physical Disabilities: None Lung Sounds: Clear to auscultation Heart Sounds: Irregular Stress Test Details Test: Exercise stress testing was performed using a Neeraj protocol. Rest Stress HR Resting HR Supine: 80 bpm Max Heart Rate (APMHR): 152 bpm Resting HR Standin bpm Target HR (85% APMHR): 129 bpm Max HR Achieved: 169 bpm % of APMHR: 111 Recovery HR: 81 bpm HR response to stress: Accelerated HR response to stress Comment: Pt has Afib and metoprolol tartrate held for 48hrs prior to test BP Resting BP Supine: 142/90 mmHg Resting BP Standin/84 mmHg Max BP: 158/90 mmHg Recovery BP: 130/80 mmHg BP response to stress: Normal blood pressure response to stress. ECG Resting ECG: Atrial Fibrillation Ectopy: None Comment: Resting T wave abnormalities in inferior and lateral leads Stress ECG: Atrial Fibrillation ST Change: No significant ST segment changes noted Arrhythmia: None Recovery ECG: Atrial Fibrillation Recovery ST Change: No significant ST segment changes noted Recovery Arrhythmia: Rare PVCs, couplet Clinical Reason for Termination: 111% max HR reached w/ AFib Stress Symptoms: None Exercise duration: 3 min27 sec Highest Stage Reached: Stage 2: 2.5 mph at 12% grade. Exercise capacity: 5.18 METs Angina Score: None Moreno Treadmill Score: 2.5 Rate Pressure Product: [id number] Stress ECG Conclusion 1. Resting electrocardiogram showed atrial fibrillation, minor nondiagnostic ST-T abnormalities 2. Patient exercised on the Neeraj protocol and completed a workload of 5.18 METS 3. Accelerated heart rate response to exercise. The patient achieved greater than 100% of predicted heart rate for age 4. There was no electrocardiographic evidence of myocardial ischemia 5. There were no symptoms suggestive of angina Moreno Treadmill Score is 2.5 which is Moderate risk. Stress Test Summary STAGE Time (mins) Speed (mph) Grade (%) HR BP SpO2 SYMPTOMS METS Supine 80 142/90 99% Standing 76 130/84 99% 1 3 1.7 10 148 98% 4.5 2 6 2.5 12 167 98% 7 1 min recovery 121 158/90 99% 3 min recovery 92 152/90 6 min recovery 81 130/80 Test terminated during second stage of exercise when HR reached 111% max. Pt asymptomatic during test ing.
== END 2023-02-07 01:11 ==
LOC: DI 00:51
PROVIDERS: PCP Family Medicine; Visit Provider Student in an Organized Health Care Education/Training Program
DX: R07.9 Chest pain, unspecified (principal)
CPT/HCPCS: 93016; 93018; 93017

== ENCOUNTER → 2023-06-18 01:59 | Outpatient (CLI) | payer MEDICARE, SELFPAY ==
--- NOTE | 2023-06-18 | DI.MAMMO_ITS ---
Exam(s) MAMMO SCREENING EXAM: MAMMO SCREENING CLINICAL HISTORY: SCREENING, Z12.31. TECHNIQUE: Bilateral full field digital CC and MLO mammographic images were obtained with 3D tomosyn thesis and utilizing computer aided detection (CAD). COMPARISON: Prior mammograms were reviewed. FINDINGS: In the left breast on the 3D MLO view there is an asymmetric density-possible nodule measuring 6 x 5 mm located 6 cm in from the nipple on the MLO view. Otherwise in left breast there are benign-appear ing microcalcifications again noted including a group of benign-appearing microcalcifications inferio rly which continues to remain stable. In the right breast on the CC view there are 2 adjacent nodular densities located 3.5 cm in from the nipple on the CC view, these measuring 8 x 7 and 6 x 5 mm. No new malignant-appearing microcalcification groups There is no significant architectural distortion nor skin thickening-retraction. IMPRESSION: Subtle suggestion of bilateral nodules as described above. Bilateral spot compression views and bila teral breast ultrasound recommended. BI-RADS Category 0 - Assessment Incomplete: Need additional imaging evaluation Breast Density - Category C - Heterogeneously dense Breast density Category C or D implies that the patient has dense breast tissue. Dense breast tissue can make it harder to find cancer on a mammogram. Dense breast tissue is also associated with an incr eased risk of breast cancer. This information about the result of the mammogram report was provided to the patient to raise their awareness. Use this report when you speak with the patient about their risks for breast cancer, which includes their family history. At that time, you may recommend additional screening tests (Ultrasoun d or MRI) as these tests may add significant information. A negative radiographic report should not delay biopsy if a dominant or clinically suspicious mass is present. Up to ten percent of cancers are not identified on mammography. A negative report may reinforce clinical impression. Adenosis and dense breasts may obscure an underlying neoplasm. False positive reports average 6 to 10%. Patient will receive a letter notifying them of these results.
== END ==
PROVIDERS: PCP Family Medicine; Visit Provider Family Medicine
DX: Z12.31 Encounter for screening mammogram for malignant neoplasm of breast (principal)
CPT/HCPCS: 77063; 77067

== ENCOUNTER → 2023-06-21 00:45 | Outpatient (CLI) | payer MEDICARE, SELFPAY ==
--- NOTE | 2023-06-21 | DI.US_ITS ---
Exam(s) US BREAST RT LIMITED US BREAST LT LIMITED MG MAMMO SCREEN CALL BACK BI EXAM: MG MAMMO SCREEN CALL BACK BI and U/S breast bilateral limited CLINICAL HISTORY: bilat breast nodules R92.8 ABNL MAMMO. TECHNIQUE: Craniocaudal and mediolateral oblique Full Field Digital Mammography views of the bilater al breast with Computer Aided Diagnosis followed by Tomosynthesis and bilateral breast ultrasound. COMPARISON: Comparison is made with prior examinations. FINDINGS: Mammography/Tomosynthesis: Masses/Architectural Distortion: The areas noted in the medial right breast in the upper left breast are less concerning on the additional views. Microcalcifictions: No suspicious pleomorphic-type are seen. Skin Thickening/Nipple Retraction: None. Bilateral limited breast US: Echotexture: Normal appearance of the glandular tissue. Shadowing: No suspicious foci. Cyst: At the 1 o'clock position of the left breast 1 cm from the nipple there is a 0.3 cm simple cyst present. No other cystic masses are seen on either limited breast ultrasound. Solid lesions: No solid masses are seen sonographically on either limited breast ultrasound. Ductal dilation: None. IMPRESSION: 1. No evidence of malignancy is noted. 2. Unless there is more urgent need, follow-up screening mammography is recommended, as per [place] [employer] guidelines. 3. The findings were discussed with the patient on the date of the examination. BI-RADS Category 2 - Benign Findings Breast Density - Category C - Heterogeneously dense Breast density Category C or D implies that the patient has dense breast tissue. Dense breast tissue can make it harder to find cancer on a mammogram. Dense breast tissue is also associated with an incr eased risk of breast cancer. This information about the result of the mammogram report was provided to the patient to raise their awareness. Use this report when you speak with the patient about their risks for breast cancer, which includes their family history. At that time, you may recommend additional screening tests (Ultrasoun d or MRI) as these tests may add significant information. A negative radiographic report should not delay biopsy if a dominant or clinically suspicious mass is present. Up to ten percent of cancers are not identified on mammography. A negative report may reinforce clinical impression. Adenosis and dense breasts may obscure an underlying neoplasm. False positive reports average 6 to 10%. Patient will receive a letter notifying them of these results.
== END ==
PROVIDERS: PCP Family Medicine; Visit Provider Family Medicine
DX: R92.8 Other abnormal and inconclusive findings on diagnostic imaging of breast (principal); Z12.31 Encounter for screening mammogram for malignant neoplasm of breast
CPT/HCPCS: 76642; 77063; 77067

== ENCOUNTER → 2023-09-12 01:27 | Outpatient (CLI) | payer MEDICARE, SELFPAY ==
--- NOTE | 2023-09-12 07:30 | DI.US_ITS ---
APPROVED REPORT EXAM: Comprehensive 2D, Doppler, and color-flow Echocardiogram Patient Location: Out-Patient Puppy Walker: Jessica Zaldivar RDCS (AE) Indications: Persistent atrial fibrillation Other Information Study Quality: Good Conclusion Normal left ventricular wall thickness and chamber size. Ejection fraction is 60%. Wall motion is n ormal. Diastolic function is indeterminate due to atrial fibrillation Normal right ventricular size and systolic function Both atria are moderately to severely enlarged Trileaflet aortic valve with mild regurgitation Normal mitral valve with moderate regurgitation Normal tricuspid valve with moderate regurgitation. Estimated right ventricular systolic pressure is 24 mmHg Mildly enlarged aortic root and ascending aorta Wall motion Left Ventricle The left ventricle is normal size. The left ventricular systolic function is normal. The left ventric ular ejection fraction is within the normal range. There is normal left ventricular wall thickness. T here is normal LV segmental wall motion. There is no ventricular septal defect visualized. LVEF is 60 %. Right Ventricle The right ventricle is normal size. The right ventricular systolic function is normal. Atria Left atrium is moderate to severely dilated. Right atrium is moderate to severely dilated. The intera trial septum is intact with no evidence for an atrial septal defect. Aortic Valve The aortic valve is normal in structure. Aortic valve is trileaflet. There is no aortic valvular sten osis. Mild aortic regurgitation. Mitral Valve The mitral valve is normal in structure. No evidence of mitral valve stenosis. Moderate mitral regurg itation. Tricuspid Valve The tricuspid valve is normal in structure. There is no tricuspid valve stenosis. Moderate tricuspid regurgitation. The RVSP is 24.4 mmHg. Pulmonic Valve The pulmonary valve is normal in structure. There is no pulmonic valvular stenosis. Mild pulmonic reg urgitation. Great Vessels Aortic root is mildly dilated. The ascending aorta is moderately dilated. Aortic arch is normal in ca liber. IVC is normal in size and collapses >50% with inspiration. Pericardium There is no pericardial effusion. 2D Dimensions IVSD d PLAX 0.79 cm F: 0.6-1.0 Ao Root d 3.42 cm F: 2.7 - 3.3 LVPW d PLAX 0.79 cm F: 0.6 - 1.0 Ao Asc Diam d 3.71 cm F: 2.3 - 3.1 LVID d PLAX 4.47 cm F: 3.8 - 5.2 LVDs 3.05 cm F: 2.2 - 3.5 LV EF Teichholz 59.7 % FS 31.62 % LV EDV (Teich) 90.8 mL LV ESV (Teich) 36.6 mL M-Mode TAPSE 2.36 cm (M/F) >1.7 Auto EF LV EDV A4C 79.1 mL LV EDV A2C 90.2 mL LV EDV BP 84.1 mL LV ESV A4C 33.5 mL LV ESV A2C 36.0 mL LV ESV BP 35.0 mL LVEF(%) A4C 57.6 % LVEF(%) A2C 60.1 % LVEF(%) BP 58.4 % LV SV A4C 45.6 ml LV SV A2C 54.2 ml LV SV BP 49.2 ml LV CO A4C 2.6 L/min LV CO A2C 3.2 L/min LV CO BP 2.9 L/min HR A4C 57.58 BPM HR A2C 58.35 BPM LV EDV Index (BP) LV Strain Long Pk Overal Avg (s) 16.69 LA Volume LA Length A4C 7.1 cm LA Length A2C 6.4 cm LA Area A4C s 31.70 cm2 LA Area A2C s 26.65 cm2 LA Vol A4C A-L 119.54 mL LA Vol A2C A-L 94.47 mL LA Vol Biplane A-L 112.4 mL LA Vol/BSA A4C A-L LA Vol/BSA A2C A-L LA Vol/BSA BP A-L 61.1 mL/m2 LA Vol A4C MOD 112.3 mL LA Vol A2C MOD 88.2 mL LA Vol BP MOD 105.2 mL RA Volume RA Area A4C 24.9 cm2 RA ESV A4C (A-L) 79.6mL RA Vol/BSA A4C A-L RA Length A4C 6.6 cm RA ESV A4C (MOD) 74.9mL LV Diastology MV E' medial 0.111 (>0.07 m/s) MV E Vmax 1.20 (0.4-1.3 m/s) MV E/E' MED 10.84 (<14) MV E' lateral 0.118 (>0.1 m/s) MV E/E' LAT 10.18 (<14) MV E' Average 0.115 m/s MV E/E'(average) 10.50 Aortic Valve AoV Vmax 1.12 m/s LVOT Vmax 0.83 m/s AoV Peak Grad 41.1 mmHg LVOT Peak Grad 2.8 mmHg AoV Area (Vmax) 2.15 cm2 LVOT VTI 0.182 m AoV VTI 0.282 m LVOT Mean Grad 1.5 mmHg AoV Mean Jovanni. 0.80 m/s LVOT SV 52.61 mL AoV Mean Grad 2.9 mmHg LVOT Diam s 1.90 cm AoV Area (VTI) 1.87 cm2 AV Regurg Peak Gr. 77.15 mmHg Velocity Ratio 0.74 AR Decel Sharp 1.6m/sec2 AR DT 2696 msec AR PHT 782 msec AR Vmax 4.39 m/s Mitral Valve MV DT 151 (160-240 msec) MR Vmax 4.89 m/s MR VTI 2.100 m MR Peak Grad 96.0 mmHg MR Mean Grad 72.6 mmHg MR PISA Radius 0.66 cm MR Aliasing Velocity 0.30 m/s Pulmonary Valve PV Vmax 0.66 (0.5-1.5 m/s) RVOT Vmax 0.44 m/s PV Peak Grad 1.8 mmHg RVOT Peak Gr. 0.8 mmHg PV Mean Jovanni 0.46 m/s RVOT VTI 0.134 m PV Mean Grad 1.0 mmHg RVOT Mean Gr. 0.5 mmHg Tricuspid Valve RA Pressure 3.00 mmHg TR Vmax 2.31 m/s TV S' 0.11 m/s TR Peak Grad 21.4 mmHg RVSP (TR) 24.4 mmHg
== END ==
PROVIDERS: PCP Family Medicine; Visit Provider Student in an Organized Health Care Education/Training Program
DX: I48.19 Other persistent atrial fibrillation (principal)
CPT/HCPCS: 93306

== ENCOUNTER → 2024-02-05 13:08 | Outpatient (CLI) | payer MEDICARE, SELFPAY ==
--- NOTE | 2024-02-05 13:01 | DI.RAD_ITS ---
Exam(s) XR KNEE RT 4V+ EXAM: XR KNEE RT 4V+ CLINICAL HISTORY: INJURY TO R LEG S89.91XA. TECHNIQUE: 2D digital imaging was performed of the right knee. Three views obtained. AP, lateral an d PA tunnel views were obtained. COMPARISON: No exams were available for comparison FINDINGS: BONES: No acute fracture is present. No bony destructive lesion is seen. There is an enthesophyte at the superior patella. JOINTS: The knee is normally aligned. There is a small to moderate size joint effusion. There is mod erate narrowing of the medial femoral tibial joint. SOFT TISSUE: Normal. IMPRESSION: 1. Medial joint space narrowing and moderate joint effusion. 2. No acute fracture or dislocation. DATA REPOSITORY: RADIATION DOSE DELIVERED:
== END ==
PROVIDERS: PCP Family Medicine; Visit Provider Physician Assistant
DX: S89.91XD Unspecified injury of right lower leg, subsequent encounter (principal); X58.XXXD Exposure to other specified factors, subsequent encounter; M25.461 Effusion, right knee
CPT/HCPCS: 73564

== ENCOUNTER → 2024-05-01 00:16 | Outpatient (CLI) | payer MEDICARE, SELFPAY ==
--- NOTE | 2024-05-01 | DI.MRI_ITS ---
Exam(s) MR LOWER EXTREMITY RT WO EXAM: MR LOWER EXTREMITY RT WO CLINICAL HISTORY: Capsulitis of MTP jt, rt foot, M77.51; lytic lesion of bone on x-ray, M89.9 TECHNIQUE: Multiplanar multisequence MRI was performed without intravenous contrast. COMPARISON: No exams were available for comparison . Apparently this patient had foot x-rays at 0 s ites intrusion which revealed an apparent lytic bone lesion in the foot. FINDINGS: SKIN: No evidence of ulcer nor subcutaneous tract. No obvious foreign body artifact. BONES/JOINTS: No evidence of fracture nor bone contusion. Talar dome appears unremarkable. 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 Joint s pace narrowing and degenerative subarticular cysts and small marginal osteophytes evident at this art iculation. Also some degenerative change at the articulation between navicular and medial cuneiform. There also some degenerative changes in the tarsometatarsal joints, this most evident at the 2nd an d 3rd TMT joints. More moderate at 1st tarsometatarsal joint. There is a small benign-appearing cys t in the proximal half of the 3rd metatarsal bone which measures 4 x 4 mm. There is no surrounding i ntraosseous edema. No abnormal intraosseous signal evident in the phalanges of the toes. There are no para-articular ganglion cysts evident. LISFRANC JOINT: Main ligament intact. No joint offset. LIGAMENTS: No obvious tears evident. MUSCULOTENDINOUS STRUCTURES: No tendon tears nor tenosynovitis evident. Achilles tendon appears intact. Trace fluid in the retrocalcaneal bursa. SOFT TISSUES: No abnormal intramuscular signal. No abnormal fluid collections. OTHER FINDINGS: No evidence of Bonilla's interdigital neuroma. IMPRESSION: 1. 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 Lisfranc joint appears intact 2. Small benign-appearing 4 mm x 4 mm cyst in the proximal half of the 3rd metatarsal, not associated with surrounding bone edema. 3. No ominous lytic osseous lesions identified, as per request DATA REPOSITORY:
== END ==
PROVIDERS: PCP Family Medicine; Visit Provider Physician Assistant
DX: M77.51 Other enthesopathy of right foot and ankle (principal); M89.9 Disorder of bone, unspecified; M19.071 Primary osteoarthritis, right ankle and foot
CPT/HCPCS: 73718

== ENCOUNTER 2024-06-06 10:44 | Outpatient (REF) | payer MEDICARE, SELFPAY | END 2024-06-06 10:45 | disposition home or self-care (01) | LOC: LBN 10:44 | PROVIDERS: PCP Family Medicine; Visit Provider Nurse Practitioner Family | DX: R31.9 Hematuria, unspecified (principal) | CPT/HCPCS: 87086 ==

== ENCOUNTER 2024-06-08 22:21 | Outpatient (REF) | payer MEDICARE, SELFPAY ==
[2024-06-08 21:53] LABS: HCT 40.6 % (36.0-46.0); HGB 13.7 g/dL (11.2-15.7); MCH 32.1 pg (27.0-33.0); MCHC 33.7 % (32.0-36.0); MCV 95 fL (80-95); MPV 10.8 fL (8.0-11.0); Platelet Count 194 10^3/uL (130-400); RBC 4.27 10^6/uL (3.93-5.22); RDW 12.4 % (11.7-14.6); RDW-SD 43.1 fL; WBC 9.92 10^3/uL (4.4-10.8)
[2024-06-08 22:05] LABS: ALT 50 U/L (14-59); AST 30 U/L (15-37); Albumin 3.7 g/dL (3.4-5.0); Alkaline Phosphatase 74 U/L (46-116); Anion Gap 8.3 mmol/L (3-11); BUN 17 mg/dL (7-18); Bilirubin, Total 0.73 mg/dL (0.2-1.0); CO2 29.7 mmol/L (21.0-32.0); CREATININE 0.9 mg/dL (0.55-1.02); Calcium 9.1 mg/dL (8.5-10.1); Calculated LDL 150 mg/dL (<100); Chloride 99 mmol/L (98-107); Cholesterol 240 mg/dL (<200); Glucose 95 mg/dL (74-106); HDL Cholesterol 71 mg/dL (40-60); Potassium 3.5 mmol/L (3.5-5.1); Sodium 137 mmol/L (136-145); Total Protein 7.3 g/dL (6.4-8.2); Triglyceride 95 mg/dL (<150)
[2024-06-08 22:06] LABS: Hemoglobin A1C 5.6 % (<5.7)
[2024-06-09 20:08] LABS: Hepatitis C Ab w Rflx HCV PCR Negative (Negative)
== END 2024-06-08 22:22 | disposition home or self-care (01) ==
LOC: NCHCN 22:21
PROVIDERS: PCP Family Medicine; Visit Provider Family Medicine
DX: Z00.00 Encounter for general adult medical examination without abnormal findings (principal)
CPT/HCPCS: 80053; 80061; 85027; 86803; 83036

== ENCOUNTER 2024-06-22 01:20 | Outpatient (CLI) | payer MEDICARE, SELFPAY ==
--- NOTE | 2024-06-22 | DI.MAMMO_ITS ---
Exam(s) MAMMO SCREENING EXAM: MAMMO SCREENING CLINICAL HISTORY: SCREENING, Z12.31 TECHNIQUE: Mammograms were interpreted according to the usual protocol including computer analysis w [facility] CAD system, tomosynthesis and C-view imaging. COMPARISON: 2013 through 2021 FINDINGS: The breasts are composed of heterogeneously dense fibroglandular densities, Breast Density category C . No suspicious masses or suspicious microcalcifications are seen. No skin thickening or abnormal axillary lymph nodes are seen. There has been no significant change from prior exams. IMPRESSION: BI-RADS Category 1, Negative mammogram. Yearly screening mammography is recommended. Breast Density Category C, heterogeneously Dense. The mammogram demonstrates the patient's breast tissue is dense. Dense breast tissue is very common a nd is not abnormal but dense breast tissue can make it harder to find cancer on a mammogram. Also, de nse breast tissue may increase breast cancer risk. This information about the result of the mammogram report was provided to the patient to raise their awareness. Use this report when you speak with the patient about their risks for breast cancer, which includes their family history. At that time, you may recommend additional screening tests (Ultrasound or MRI) as they might be useful based on their r isk. A negative radiographic report should not delay biopsy if a dominant or clinically suspicious mass is present. Up to ten percent of cancers are not identified on mammography. A negative report may reinforce clinical impression. Adenosis and dense breasts may obscure an underlying neoplasm. False positive reports average 6 to 10%.
== END 2024-06-22 01:40 ==
LOC: DI 01:20
PROVIDERS: PCP Family Medicine; Visit Provider Family Medicine
DX: Z12.31 Encounter for screening mammogram for malignant neoplasm of breast (principal)
CPT/HCPCS: 77063; 77067

== ENCOUNTER 2025-05-27 17:48 | Outpatient (REF) | payer MEDICARE, SELFPAY ==
[2025-05-27 19:50] LABS: RBC >50 HPF (0-2)
== END 2025-05-27 17:49 | disposition home or self-care (01) ==
LOC: LBN 17:48
PROVIDERS: PCP Family Medicine; Visit Provider Physician Assistant Medical
DX: R30.0 Dysuria (principal)
CPT/HCPCS: 87077; 81015; 87086; 87186

== ENCOUNTER 2025-06-03 22:23 | Outpatient (REF) | payer MEDICARE, SELFPAY | END 2025-06-03 22:24 | disposition home or self-care (01) | LOC: LBN 22:23 | PROVIDERS: PCP Family Medicine; Visit Provider Nurse Practitioner Family | DX: N30.01 Acute cystitis with hematuria (principal) | CPT/HCPCS: 87077; 87086; 87186 ==

== ENCOUNTER 2025-07-14 18:44 | Outpatient (REF) | payer MEDICARE, SELFPAY ==
[2025-07-14 15:07] LABS: ALT 24 U/L (14-59); AST 15 U/L (15-37); Albumin 3.6 g/dL (3.4-5.0); Alkaline Phosphatase 68 U/L (46-116); Anion Gap 8.1 mmol/L (3-11); BUN 17 mg/dL (7-18); Bilirubin, Total 0.7 mg/dL (0.2-1.0); CO2 28.9 mmol/L (21.0-32.0); Calcium 8.6 mg/dL (8.5-10.1); Calculated LDL 137 mg/dL (<100); Chloride 103 mmol/L (98-107); Cholesterol 216 mg/dL (<200); Estimated GFR 79.22 (mL/min/1.73m2); Glucose 89 mg/dL (74-106); HDL Cholesterol 58 mg/dL (>or=50); Potassium 3.5 mmol/L (3.5-5.1); Sodium 140 mmol/L (136-145); Total Protein 6.9 g/dL (6.4-8.2); Triglyceride 106 mg/dL (<150)
== END 2025-07-14 18:45 | disposition home or self-care (01) ==
LOC: NCHCN 18:44
PROVIDERS: PCP Family Medicine; Visit Provider Family Medicine
DX: Z13.220 Encounter for screening for lipoid disorders (principal); I10 Essential (primary) hypertension
CPT/HCPCS: 80053; 80061

== ENCOUNTER → 2025-09-06 02:21 | Outpatient (CLI) | payer MEDICARE, SELFPAY ==
--- NOTE | 2025-09-06 | DI.MAMMO_ITS ---
Exam(s) MAMMO SCREENING EXAM: MAMMO SCREENING CLINICAL HISTORY: Z12.31 Screening TECHNIQUE: Bilateral full field digital CC and MLO mammographic images were obtained with 3D tomosynthesis and utilizing computer aided detection (CAD). COMPARISON: Comparison is made with prior examinations. FINDINGS: Masses/Architectural Distortion: No suspicious masses or areas of architectural distortion are present. Microcalcifications: No suspicious pleomorphic-type are seen. Skin Thickening/Nipple Retraction: None. IMPRESSION: 1. No significant interval change with no specific features of malignancy noted. 2. Unless there is more urgent need, screening mammography is recommended, as per [place] [employer] guidelines. BI-RADS Category 1 - Negative Breast Density - Category C - The breast are heterogeneously dense, which may obscure small masses. Breast density Category C or D implies that the patient has dense breast tissue. Dense breast tissue can make it harder to find cancer on a mammogram. Dense breast tissue is also associated with an increased risk of breast cancer. This information about the result of the mammogram report was provided to the patient to raise their awareness. Use this report when you speak with the patient about their risks for breast cancer, which includes their family history. At that time, you may recommend additional screening tests (Ultrasound or MRI) as these tests may add significant information. A negative radiographic report should not delay biopsy if a dominant or clinically suspicious mass is present. Up to ten percent of cancers are not identified on mammography. A negative report may reinforce clinical impression. Adenosis and dense breasts may obscure an underlying neoplasm. False positive reports average 6 to 10%. Patient will receive a letter notifying them of these results.
== END ==
PROVIDERS: PCP Family Medicine; Visit Provider Family Medicine
DX: Z12.31 Encounter for screening mammogram for malignant neoplasm of breast (principal)
CPT/HCPCS: 77063; 77067